=== PATIENT | male | born 1965 ===

== ENCOUNTER 2018-11-08 14:04 | Emergency (ER) | payer MEDICAID, SELFPAY ==
[2018-11-08 14:28] LABS: BASO # 0.1 K/uL (0.0-0.2); BASO % 0.8 % (0.0-2.0); EOS # 0.1 K/uL (0.0-0.7); EOS % 1.3 % (0.0-4.0); HEMOGLOBIN 14.6 g/dL (12.0-18.0); LYMPH # 1.4 K/uL (1.0-4.3); LYMPH % 17.3 % (20.0-40.0); MEAN CORPUSCULAR HEMOGLOBIN 32.2 pg (27.0-31.0); MEAN CORPUSCULAR HGB CONC 33.9 g/dL (33.0-37.0); MONO # 0.6 K/uL (0.0-0.8); MONO % 6.7 % (0.0-10.0); NEUT # 6.1 K/uL (1.8-7.0); NEUT % 73.9 % (50.0-75.0); NRBC % 0.1 % (0.0-0.0); RBC 4.54 Mil/uL (4.40-5.90); RED CELL DISTRIBUTION WIDTH 13.3 % (11.5-14.5); WHITE BLOOD COUNT 8.3 K/uL (4.8-10.8)
[2018-11-08] MEDS ORDERED: Heparin 25,000units in D5W 25,000 UNITS/250 ML BAG IV SCH (14:30)
[2018-11-08 14:34] VITALS: TEMP 97.5; O2SAT 100
[2018-11-08 14:36] LABS: INR 1.1; PROTHROMBIN TIME 12.3 Seconds (9.8-13.1)
[2018-11-08 14:38] LABS: PARTIAL THROMBOPLASTIN TIME 23.8 Seconds (25.6-37.1)
[2018-11-08 14:38] LABS: BLOOD UREA NITROGEN 24 mg/dl (9-20); CALCIUM 9.6 mg/dL (8.4-10.2); GFR NON-AFRICAN AMERICAN > 60
--- NOTE | 2018-11-08 14:50 | ED PDOC ---
HPI: Chest Pain Time Seen by Provider: 11/08/18 14:17 Chief Complaint (Provider): Chest pain History Per: Patient History/Exam Limitations: no limitations Onset/Duration Of Symptoms: Hrs (x3) Current Symptoms Are (Timing): Still Present Additional Complaint(s): 53 year old male, with a past medical history of aortic valve replacement and aortic stenosis, presents to the ED complaining of anterior chest pain radiating to his left arm which started 3 hours ago. Patient reports pain started s uddenly. Denies difficulty breathing, back pain, vomiting, fever, or cough. Upon reviewing November 2016 cardiac cath technologist report, patient had unremarkable coronary arteries. Patient reports he takes Coumadin with last dose yesterday morning. PMD: none Past Medical History Reviewed: Historical Data, Nursing Documentation, Vital Signs Vital Signs: Last Vital Signs Temp 97.5 F L 11/08/18 14:33 Pulse 92 H 11/08/18 14:33 Resp 15 11/08/18 14:33 BP 189/140 H 11/08/18 14:33 Pulse Ox 100 11/08/18 14:33 - Medical History PMH: CHF, HTN Denies: Chronic Kidney Disease Other PMH: aortic stenosis - Surgical History Other surgeries: aortic valve replacement - Family History Family History: States: Unknown Family Hx - Home Medications Home Medications: Ambulatory Orders Medication Instructions Recorded RX: Carvedilol [Coreg] 3.125 mg PO Q12 #60 tab 11/26/16 Furosemide [Lasix] 20 mg PO DAILY #30 tablet 01/15/17 - Allergies Allergies/Adverse Reactions: Allergies Allergy/AdvReac Type Severity Reaction Status Date / Time No Known Allergies Allergy Verified 11/08/18 14:18 ANA Risk Score for UA/NSTEMI - ANA Risk Score Age > 64: NO 3 or more CAD Risk Factors: YES Known CAD (Stenosis greater than 50%): NO Aspirin use in past 7 days: NO Severe Angina: YES EKG ST changes greater than 0.5mm: YES Positive Cardiac Marker: YES ANA Score: 4 Risk %: 20% Wells Criteria for PE - Wells Criteria for Pulmonary Embolism Clinical Signs and Symptoms of DVT: No P.E is #1 Diagnosis, or Equally Likely: No Heart Rate >100: No Immobilization at least 3 days;Surgery previous 4 weeks: No Previous, objectively diagnosed PE or DVT: No Hemoptysis: No Malignancy w/treatment within 6 months, or palliative: No Total Score: 0 Review of Systems ROS Statement: Except As Marked, All Systems Reviewed And Found Negative Constitutional: Negative for: Fever Cardiovascular: Positive for: Chest Pain Respiratory: Negative for: Cough, Shortness of Breath Gastrointestinal: Negative for: Vomiting Musculoskeletal: Positive for: Arm Pain (chest pain radiating to left arm ). Negative for: Back Pain Physical Exam - Reviewed Nursing Documentation Reviewed: Yes Vital Signs Reviewed: Yes - Physical Exam Appears: Positive for: No Acute Distress Head Exam: Positive for: ATRAUMATIC, NORMOCEPHALIC Skin: Positive for: Normal Color, Warm, Dry Eye Exam: Positive for: Normal appearance Neck: Positive for: Normal, Painless ROM Cardiovascular/Chest: Positive for: Regular Rate, Rhythm Respiratory: Positive for: Normal Breath Sounds. Negative for: Wheezing, Respiratory Distress Gastrointestinal/Abdominal: Positive for: Normal Exam, Soft. Negative for: Tenderness Extremity: Positive for: Normal ROM Neurologic/Psych: Positive for: Alert, Oriented - Laboratory Results Result Diagrams: 11/08/18 14:25 11/08/18 14:25 - ECG ECG: Positive for: Interpreted By Me, Viewed By Me, Discussed With Financial Accountant ECG Rhythm: Positive for: Sinus Rhythm, ST/T Changes Interpretation Of EC:13 ST segment elevation in anterolateral leads I, V2, AVL and reciprocal ST depression in leads III, AVF consistent with STEMI. Rate: 80 O2 Sat by Pulse Oximetry: 100 (RA) Pulse Ox Interpretation: Normal - Core Measure Core Measure Indicators: Code Heart - Critical Care Total Time (In Min): 40 Documented Critical Care: Time excludes all time spent performint seperately billable procedures Medical Decision Making Medical Decision Making: Initial Impression: Chest pain Differential includes STEMI and aortic dissection. Initial Plan: --ECG --BMP --Troponin stat --CBC --Chest X-ray 14:17 Initial code heart called. 14:19 Dr. Santana consulted. ECG, PTT, Prothrombin time, glucose, Apsirin 325mg PO, Amy linta 180mg PO, ordered. According to institutional policies, [facility] was activated and [facility] was called. 14:[address] Santana agrees with plan of transfer to [facility] for cardiac intervention. X-ray reviewed and showed no acute findings. Heparin drip was held off until INR came back because patient takes Coumadin. Nitroglycerin 0.4mg SL ordered. 14:[address] Santana. INR is 1.1. Heparin 4000 units in 250mL IV was administered. Heparin drip was started. 14:46 Patient transferred to [facility]. Scribe Attestation: Documented by Harjit Nunez acting as a scribe for Nitin Montes MD. Provider Scribe Attestation: All medical record entries made by the Scribe were at my direction and personally dictated by me. I have reviewed the chart and agree that the record accurately reflects my personal performance of the history, physical exam, me dical decision making, and the department course for this patient. I have also personally directed, reviewed, and agree with the discharge instructions and disposition. 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
--- NOTE | 2018-11-08 15:02 | RAD ---
Date of service: 11/08/2018 PROCEDURE: CHEST RADIOGRAPH, 1 VIEW HISTORY: chest pain COMPARISON: 01/12/2017 FINDINGS: LUNGS: Clear. PLEURA: No pneumothorax or pleural fluid seen. CARDIOVASCULAR: No aortic atherosclerotic calcification present. Normal. OSSEOUS STRUCTURES: No significant abnormalities. VISUALIZED UPPER ABDOMEN: Normal. OTHER FINDINGS: None. IMPRESSION: No active disease. No acute/significant interval changes.
[2018-11-08] MEDS ORDERED: Heparin 25,000units in D5W 25,000 UNITS/250 ML BAG IV ONE (15:07)
[2018-11-08 15:30] VITALS: PULSE 80
[2018-11-08 15:32] VITALS: BP 189/117; RESP 18
--- NOTE | 2018-11-09 23:06 | CARD ---
APPROVED REPORT Date of service: 11/08/2018 EKG Measurement Heart [id number] <Conclusion> Sinus rhythm with premature ventricular complexes Anterolateral infarct, possibly acute ACUTE [place] / STEMI Abnormal ECG
--- NOTE | 2018-11-09 23:06 | CARD ---
APPROVED REPORT Date of service: 11/08/2018 EKG Measurement Heart [id number] <Conclusion> Sinus rhythm with occasional premature ventricular complexes Anterolateral infarct, possibly acute ACUTE [place] / STEMI Abnormal ECG
== END 2018-11-08 14:50 | disposition short-term general hospital (02) ==
LOC: H.ER 14:04
DX: R07.9 Chest pain, unspecified (principal); I21.3 ST elevation (STEMI) myocardial infarction of unspecified site; I11.0 Hypertensive heart disease with heart failure; I35.0 Nonrheumatic aortic (valve) stenosis; Z95.2 Presence of prosthetic heart valve
CPT/HCPCS: 71045; 80048; 82948; 84484; 85025; 85610; 85730; 93005; 96374; 99285; J1644